=== PATIENT | female | born 1990 | race Caucasian/White ===

== ENCOUNTER 2018-04-23 01:29 | Observation (INO) | payer OTHER ==
[~2018-04-23] VITALS: Ht 165.1 cm; Wt 63.5 kg
[2018-04-23 01:34] VITALS: BP 134/80
--- NOTE | 2018-04-23 01:34 | NUR ---
ED Nurse Note: Patient walk in c/o vomiting for 4x hours. Patient reports undigested food emesis. Patient states her BS is 160. Patient reports 7/10 abdominal pain. Pt is AO x 4times, VSS, on room air no distress. ERMD seen Pt at bedside.
[2018-04-23] MEDS ORDERED: TRESIBA FL100 UNIT/1 SQ (01:38)
[2018-04-23] MEDS ORDERED: ZOLOFT50 MG ORAL (01:38)
[2018-04-23] MEDS ORDERED: HUMALOG100 UNIT/3 SUBQ (01:38)
[2018-04-23] MEDS ORDERED: Metoclopramide 10mg/2ml Inj IVP ONE (01:45)
[2018-04-23] MEDS ORDERED: Sodium Chloride 500ML 500 ML IV ONE (01:45)
[2018-04-23] MEDS ORDERED: DiphenhydrAMINE 50mg/ml Inj IVP ONE (01:45)
--- NOTE | 2018-04-23 01:58 | Emergency Room Report ---
History of Present Illness General Chief Complaint: Vomiting Source: Patient Present Illness HPI Patient presents with intermittent bouts of rapid heart rate occurring intermittently during the week. His sugars haven't gotten above 300. She is an insulin-dependent diabetic. Tonight she's been vomiting and has epigastric discomfort from the vomiting and is complaining about a rapid heart rate. She also complains about watery diarrhea. She's never had cardiac problems before. She's had diabetic ketoacidosis in the past. She is due to begin her period in a few days. She takes 20 units of long-acting insulin once a day and controls her sugars with Humalog. For every 50 units above 150 mg/dL she takes 1 unit. She believes she might have eaten something that caused this reaction. She rates pain 6/10, intermittent, nonradiating and cramping with some burning quality. She had a similar episode when she traveled to [place]. This required hospitalization for 2 days. He was similar in that she had epigastric pain, vomiting and diarrhea. She denies chest pain, dizziness, fevers, sore throat, cough, dysuria, joint pain. She has been under stress trying to arrange for her son's birthday tomorrow. Allergies: Coded Allergies: No Known Allergies (Unverified , 04/23/18) Patient History Past Medical History: see triage record Social History: Reports: drug use - THC; Denies: smoking, alcohol use Social History Narrative with . Professional musician. Son turns 6 years old tomorrow Last Menstrual Period: 03/25/2018 Now: No : 1 Para: 1 Reviewed Nursing Documentation: PMH: Agreed; PSxH: Agreed Nursing Documentation-PM Past Medical History: No History, Except For Hx Diabetes: Yes - type 1 Review of Systems All Other Systems: negative except mentioned in HPI Physical Exam Vital Signs Date Time Temp Pulse Resp B/P (MAP) Pulse Ox O2 Delivery O2 Flow Rate FiO2 04/23/18 01:34 97.3 157 22 124/87 97 Room Air Sp02 EP Interpretation: reviewed, normal General Appearance: alert, GCS 15, mild distress Head: normocephalic Eyes: bilateral eye normal inspection, bilateral eye PERRL ENT: normal pharynx, dry mucus membranes Neck: supple Respiratory: lungs clear, normal breath sounds Cardiovascular #1: regular rate, rhythm Cardiovascular #2: 2+ radial (R) Gastrointestinal: normal inspection, normal bowel sounds, soft, no mass, non- distended, no guarding, no rebound, tenderness - Reported epigastric Genitourinary: no CVA tenderness Musculoskeletal: back normal, gait/station normal, normal range of motion Neurologic: alert, oriented x3, grossly normal Psychiatric: anxious Skin: normal inspection, warm/dry Medical Decision Making Diagnostic Impression: Primary Impression: Hyperglycemia Additional Impressions: Leukocytosis Qualified Codes: D72.828 - Other elevated white blood cell count Abdominal pain Qualified Codes: R10.13 - Epigastric pain Respiratory alkalosis Sinus tachycardia ER Course Patient presents with a vomiting dyspnea tachycardia with history of diabetes. Differential includes diabetic ketoacidosis, gastroenteritis, find depletion, arrhythmia amongst others. Evaluation will be with EKG, chest x-ray and labs including venous blood gas. The patient will be treated with Reglan, Benadryl, fentanyl, Pepcid and IV hydration. EKG with ST rate 154. CXR clear. Labs with elevated glucose and bicarb 15. WBC = 18k Venous blood gas with respiratory alkalosis (pH = 7.56). No evidence of diabetic ketoacidosis at this time however patient needs continued treatment with IV hydration and repeat Accu-Cheks and labs. With fluids, slightly better HR. No more vomiting. Still nauseated. Improved with treatment. Wants to go home as son's 6th birthday. Vomiting again. Zofran and analgesia. Repeat BNP initially looks like lab/draw error. Repeat peripheral draw. Peripheral BNP improved. Bicarbonate normal and potassium normal. This also suggests prior respiratory alkalosis. Still with pain - requests Dilaudid. Due to leukocytosis, continued pain and nausea with brittle diabetes admission for observation is undertaken. Patient states she does not want to stay but agrees to stay for repeat evaluation. Patient admitted to telemetry to Dr. Lucero. Laboratory Tests Test 04/23/18 01:40 04/23/18 01:45 04/23/18 04:15 04/23/18 05:25 White Blood Count 18.0 K/UL (4.8-10.8) H Red Blood Count 5.15 M/UL (4.20-5.40) Hemoglobin 17.0 G/DL (12.0-16.0) H Hematocrit 46.8 % (37.0-47.0) Mean Corpuscular Volume 91 FL (80-99) Mean Corpuscular Hemoglobin 33.0 PG (27.0-31.0) H Mean Corpuscular Hemoglobin Concent 36.3 G/DL (32.0-36.0) H Red Cell Distribution Width 10.8 % (11.6-14.8) L Platelet Count 369 K/UL (150-450) Mean Platelet Volume 8.5 FL (6.5-10.1) Neutrophils (%) (Auto) % (45.0-75.0) Lymphocytes (%) (Auto) % (20.0-45.0) Monocytes (%) (Auto) % (1.0-10.0) Eosinophils (%) (Auto) % (0.0-3.0) Basophils (%) (Auto) % (0.0-2.0) Differential Total Cells Counted 100 Neutrophils % (Manual) 87 % (45-75) H Lymphocytes % (Manual) 10 % (20-45) L Monocytes % (Manual) 1 % (1-10) Eosinophils % (Manual) 2 % (0-3) Basophils % (Manual) 0 % (0-2) Band Neutrophils 0 % (0-8) Platelet Estimate Adequate Platelet Morphology Normal Red Blood Cell Morphology Normal Sodium Level 136 MMOL/L (136-145) 144 MMOL/L (136-145) 136 MMOL/L (136-145) Potassium Level 3.4 MMOL/L (3.5-5.1) L 3.1 MMOL/L (3.5-5.1) L 4.1 MMOL/L (3.5-5.1) Chloride Level 96 MMOL/L (98-107) L 114 MMOL/L (98-107) H 103 MMOL/L (98-107) Carbon Dioxide Level 15 MMOL/L (21-32) L 18 MMOL/L (21-32) L 22 MMOL/L (21-32) Anion Gap 25 mmol/L (5-15) H 12 mmol/L (5-15) 12 mmol/L (5-15) Blood Urea Nitrogen 8 mg/dL (7-18) 6 mg/dL (7-18) L 10 mg/dL (7-18) Creatinine 1.0 MG/DL (0.55-1.30) 0.5 MG/DL (0.55-1.30) L 0.8 MG/DL (0.55-1.30) # Estimate Glomerular Filtration Rate > 60 mL/min (>60) > 60 mL/min (>60) > 60 mL/min (>60) Glucose Level 231 MG/DL (74-106) H 172 MG/DL (74-106) H 230 MG/DL (74-106) H Calcium Level 10.4 MG/DL (8.5-10.1) H 5.6 MG/DL (8.5-10.1) #*L 7.9 MG/DL (8.5-10.1) #L Magnesium Level 1.5 MG/DL (1.8-2.4) L Total Bilirubin 0.5 MG/DL (0.2-1.0) Aspartate Amino Transferase (AST) 34 U/L (15-37) Alanine Aminotransferase (ALT) 34 U/L (12-78) Alkaline Phosphatase 75 U/L (46-116) Total Protein 9.0 G/DL (6.4-8.2) H Albumin 4.7 G/DL (3.4-5.0) Globulin 4.3 g/dL Albumin/Globulin Ratio 1.1 (1.0-2.7) Lipase 117 U/L (73-393) Human Chorionic Gonadotropin, Qual Negative (NEGATIVE) Acetone Level Positive-small (NEGATIVE) Venous Blood pH Pending Venous Blood Partial Pressure CO2 Pending Venous Blood Partial Pressure O2 Pending Venous Blood HCO3 Pending Venous Blood Total Carbon Dioxide Pending Venous Bld O2 Saturation (Measured) Pending Venous Blood Oxygen Saturation Pending Venous Blood Base Excess Pending Methemoglobin Pending Sodium (Blood Gas) Pending EKG Diagnostic Results Rate: tachycardiac ST Segments: no acute changes Rhythm Strip Diag. Results EP Interpretation: yes Rhythm: no PVC's, no ectopy, other - ST Chest X-Ray Diagnostic Results Chest X-Ray Diagnostic Results : Chest X-Ray Ordered: Yes # of Views/Limited/Complete: 1 View Indication: Other EP Interpretation: Yes Interpretation: no consolidation, no effusion, no pneumothorax Impression: No acute disease Electronically Signed by: Electronically signed by Sergio Loza MD Status: improved Disposition: ADMITTED INPATIENT Condition: Serious Sergio Loza MD Apr 23, 2018 01:58
--- NOTE | 2018-04-23 02:00 | NUR ---
ED Nurse Note: Blood sample sent to Lab.
[2018-04-23 02:05] LABS: HEMATOCRIT 46.8 % (37.0-47.0); MEAN CORPUSCULAR VOLUME 91 FL (80-99); PLATELET COUNT 369 K/UL (150-450); RED BLOOD COUNT 5.15 M/UL (4.20-5.40); RED CELL DISTRIBUTION WIDTH 10.8 % (11.6-14.8)
[2018-04-23 02:15] LABS: ANION GAP 25 mmol/L (5-15); BLOOD UREA NITROGEN 8 mg/dL (7-18); CALCIUM 10.4 MG/DL (8.5-10.1); CARBON DIOXIDE 15 MMOL/L (21-32); CHLORIDE 96 MMOL/L (98-107); POTASSIUM 3.4 MMOL/L (3.5-5.1); SODIUM 136 MMOL/L (136-145)
[2018-04-23 02:20] LABS: ALANINE AMINOTRANSFERASE 34 U/L (12-78); ALBUMIN 4.7 G/DL (3.4-5.0); ALBUMIN/GLOBULIN RATIO 1.1 (1.0-2.7); ALKALINE PHOSPHATASE 75 U/L (46-116); ASPARTATE AMINO TRANSFERASE 34 U/L (15-37); BILIRUBIN,TOTAL 0.5 MG/DL (0.2-1.0)
[2018-04-23] MEDS ORDERED: Morphine Sulfate 4mg/ml Inj (IV/IM USE ONLY) IVP ONE (02:30)
--- NOTE | 2018-04-23 02:43 | NUR ---
RESPIRATORY THERAPY Venous results given back to Dr. Loza. Wasn't able to enter results on [employer] ACID/BASE 37.0 C pH 7.538 pCO2 15.9 pO2 92.4 HCO3 13.2 BE(B) -6.7 CO-OXIMETRY tHB 12.1 g/dl sO2 97.0 % FO2HB 96.2 % FCOHb 0.3 % FMetHb 0.5 % FHHb 3.0 %
[2018-04-23] MEDS ORDERED: fentaNYL 100 mcg/2 mL IV ONE ×2 (02:45→04:00)
--- NOTE | 2018-04-23 04:35 | Diagnostic Imaging Report ---
EXAM: XR Chest, 1 View CLINICAL HISTORY: CP TECHNIQUE: Frontal view of the chest. COMPARISON: No relevant prior studies available. FINDINGS: Lungs: Unremarkable. No consolidation. Pleural space: Unremarkable. No pneumothorax. Heart: Unremarkable. No cardiomegaly. Mediastinum: Unremarkable. Bones/joints: Unremarkable. IMPRESSION: Normal chest.
[2018-04-23 05:15] LABS: ANION GAP 12 mmol/L (5-15); BLOOD UREA NITROGEN 6 mg/dL (7-18); CARBON DIOXIDE 18 MMOL/L (21-32); CHLORIDE 114 MMOL/L (98-107); CREATININE 0.5 MG/DL (0.55-1.30); POTASSIUM 3.1 MMOL/L (3.5-5.1); SODIUM 144 MMOL/L (136-145)
[2018-04-23] MEDS ORDERED: Hydromorphone 0.5mg/0.5ml inj IVP ONE (05:15)
--- NOTE | 2018-04-23 05:15 | NUR ---
ED Nurse Note: Repect BMP sent to Lab.
[2018-04-23 05:18] LABS: CALCIUM 5.6 MG/DL (8.5-10.1)
[2018-04-23] MEDS ORDERED: Potassium Chloride 20 MEQ in LR 1000ml 1,000 ML IV SCH (05:30)
[2018-04-23] MEDS ORDERED: LR 1000ml 1,000 ML IVLG SCH ×2 (06:00)
[2018-04-23 06:17] LABS: ANION GAP 12 mmol/L (5-15); BLOOD UREA NITROGEN 10 mg/dL (7-18); CALCIUM 7.9 MG/DL (8.5-10.1); CARBON DIOXIDE 22 MMOL/L (21-32); CHLORIDE 103 MMOL/L (98-107); CREATININE 0.8 MG/DL (0.55-1.30); POTASSIUM 4.1 MMOL/L (3.5-5.1); SODIUM 136 MMOL/L (136-145)
[2018-04-23 07:00] VITALS: BP 128/78
--- NOTE | 2018-04-23 07:00 | NUR ---
ED Nurse Note: Admit Pt to Tele Room 204-1. Pt is AO x 4times, VSS, on room air no distress. Skin and belongings check with RN. Report given to MANUEL Goldstein.
--- NOTE | 2018-04-23 07:39 | General Progress Note ---
Assessment/Plan Assessment/Plan GI CONSULT Dictated Will check stool w/u Begin clear - advance Thank you Gauri Suarez MD Subjective Allergies: Coded Allergies: No Known Allergies (Unverified , 04/23/18) Objective Last 24 Hour Vital Signs Date Time Temp Pulse Resp B/P (MAP) Pulse Ox O2 Delivery O2 Flow Rate FiO2 04/23/18 07:00 98.1 87 20 128/78 100 Room Air 04/23/18 07:00 98.1 87 20 128/78 100 Room Air 04/23/18 01:34 85 20 Room Air 04/23/18 01:34 97.3 157 22 124/87 97 Room Air 04/23/18 01:34 98.4 87 20 134/80 97 Room Air Intake and Output 04/22/18 04/23/18 19:00 07:00 Intake Total 150 ml Balance 150 ml Intake Oral 150 ml # Voids 1 Laboratory Tests 04/23/18 01:40: White Blood Count 18.0H, Red Blood Count 5.15, Hemoglobin 17.0H, Hematocrit 46.8 , Mean Corpuscular Volume 91, Mean Corpuscular Hemoglobin 33.0H, Mean Corpuscular Hemoglobin Concent 36.3H, Red Cell Distribution Width 10.8L, Platelet Count 369, Mean Platelet Volume 8.5, Neutrophils (%) (Auto) , Lymphocytes (%) (Auto) , Monocytes (%) (Auto) , Eosinophils (%) (Auto) , Basophils (%) (Auto) , Neutrophils % (Manual) [Pending], Lymphocytes % (Manual) [Pending], Platelet Estimate [Pending], Platelet Morphology [Pending], Sodium Level 136, Potassium Level 3.4L, Chloride Level 96L, Carbon Dioxide Level 15L, Anion Gap 25H, Blood Urea Nitrogen 8, Creatinine 1.0, Estimat Glomerular Filtration Rate > 60, Glucose Level 231H, Calcium Level 10.4H, Magnesium Level 1.5L, Total Bilirubin 0.5, Aspartate Amino Transf (AST/SGOT) 34, Alanine Aminotransferase (ALT/SGPT) 34, Alkaline Phosphatase 75, Total Protein 9.0H, Albumin 4.7, Globulin 4.3, Albumin/Globulin Ratio 1.1, Lipase 117, Human Chorionic Gonadotropin, Qual Negative, Acetone Level Positive-small 04/23/18 01:45: Venous Blood pH [Pending], Venous Blood Partial Pressure CO2 [Pending], Venous Blood Partial Pressure O2 [Pending], Venous Blood HCO3 [Pending], Venous Blood Total Carbon Dioxide [Pending], Venous Bld O2 Saturation (Measured) [Pending], Venous Blood Oxygen Saturation [Pending], Venous Blood Base Excess [Pending], Methemoglobin [Pending], Sodium (Blood Gas) [Pending] 04/23/18 04:15: Sodium Level 144, Potassium Level 3.1L, Chloride Level 114H, Carbon Dioxide Level 18L, Anion Gap 12, Blood Urea Nitrogen 6L, Creatinine 0.5L, Estimat Glomerular Filtration Rate > 60, Glucose Level 172H, Calcium Level 5.6#*L 04/23/18 05:25: Sodium Level 136, Potassium Level 4.1, Chloride Level 103, Carbon Dioxide Level 22, Anion Gap 12, Blood Urea Nitrogen 10, Creatinine 0.8#, Estimat Glomerular Filtration Rate > 60, Glucose Level 230H, Calcium Level 7.9#L Height (Feet): 5 Height (Inches): 5.00 Weight (Pounds): 140 Salinas Suarez MD Apr 23, 2018 07:39
--- NOTE | 2018-04-23 07:41 | NUR ---
NURSE NOTES: Report received from MANUEL Matthews. Pt is alert and oriented X4. Bed is in lowest position, side rails up X2, and call light is within reach. Will continue to monitor.
[2018-04-23] MEDS ORDERED: Mylanta II UD 30ml ORAL PRN (08:15)
[2018-04-23] MEDS ORDERED: Ketorolac 30mg Inj IV PRN (08:15)
[2018-04-23] MEDS ORDERED: Miralax 17gm pkt ORAL PRN (08:15)
[2018-04-23] MEDS ORDERED: Morphine Sulfate 4mg/ml Inj (IV/IM USE ONLY) IVP PRN ×2 (08:15→10:15)
[2018-04-23] MEDS ORDERED: Nitroglycerin Subl 0.4mg tab SL PRN (08:15)
--- NOTE | 2018-04-23 08:58 | NUR ---
NURSE NOTES: Patient is refusing the ultrasounds. She states "I do not need an ultrasound, I came in for a stomach bug". Explained to patient the importance of having the procedure done. Pt verbalized understanding but is still refusing.
[2018-04-23] MEDS ORDERED: Levemir Flexpen SUBQ SCH (09:00)
[2018-04-23] MEDS ORDERED: Heparin 5000 units/ml inj SUBQ SCH (09:00)
--- NOTE | 2018-04-23 09:08 | NUR ---
NURSE NOTES: Received call from Dr. Knight. Per Give entire levemir dose even if pt is NPO. Orders noted and carried out.
[2018-04-23] MEDS ORDERED: HYDROmorphone 1mg/ml Carpuject IVP PRN ×2 (10:10→10:15)
[2018-04-23] MEDS ORDERED: NovoLOG Insulin Flexpen SUBQ SCH ×3 (11:30→11:50)
--- NOTE | 2018-04-23 11:56 | NUR ---
NURSE NOTES: patient does not want to stay in the hospital. She has signed out AMA. Belongings list signed and in chart. ID band was removed and IV was discontinued. No redness or swelling noted. Monitor removed and given to tech. Singed AMA form in chart. Primary MD notified.
--- NOTE | 2018-04-23 15:04 | Cardiology Report ---
APPROVED REPORT EKG Measurement Heart [id number] Sinus tachycardia Nonspecific T wave abnormality Abnormal ECG
--- NOTE | 2018-04-23 17:44 | History and Physical Report ---
DATE OF ADMISSION: 04/23/2018 TIME SEEN: 10 a.m. CONSULTANTS: 1. Edin Loja M.D. 2. Dennis Knight M.D. 3. Daquan Murrell M.D. CHIEF COMPLAINT: Nausea, vomiting, hyperglycemia. BRIEF HISTORY: A 27-year-old female, who lives at home, presents with nausea and vomiting for two days. Her sugar spiked up to mid 250s. The patient came to [place], diagnosed with the above, and admitted to telemetry for further care. Currently calm in bed, slightly nauseous. No complaint. REVIEW OF SYSTEMS: No chest pain. No shortness of breath. Slight nausea and vomiting, no diarrhea. PAST MEDICAL HISTORY: Diabetes type 1. PAST SURGICAL HISTORY: 1. . 2. Appendectomy. MEDICATIONS: Include NovoLog insulin, hydromorphone, morphine, detemir, temazepam, Zofran. ALLERGIES: Denies. SOCIAL HISTORY: Positive smoke. Occasional alcohol. No intravenous drug use. Positive marijuana use. FAMILY HISTORY: Noncontributory. PHYSICAL EXAMINATION: GENERAL: Calm in bed, oriented x3, no acute distress. VITAL SIGNS: Temperature is 98 degrees, pulse 87, respiratory rate 20, blood pressure 120/78. CARDIOVASCULAR: No murmurs. LUNGS: Distant and clear. ABDOMEN: Bowel sounds positive. Nontender. Nondistended. EXTREMITIES: No cyanosis, clubbing, or edema. NEUROLOGIC: The patient moves all extremities, slightly weak. LABORATORY AND DIAGNOSTIC DATA: White count 18, otherwise CBC is normal. BMP show initial abnormality. The latest one show BMP is normal except glucose 230 and calcium 7.9. Urine tox positive for small acetone. ASSESSMENT: 1. Nausea and vomiting. 2. Hyperglycemia. 3. Leukocytosis. PLAN: 1. Blood sugar control. 2. Pain control. 3. Dietary followup. 4. Antiemetic. 5. Dietary evaluation. 6. CBC and BMP in the morning. 7. Endocrine followup and GI followup. Augustin Lucero D.O. DR: Nel JOB#: [id number] CC:
--- NOTE | 2018-04-23 22:15 | Consultation ---
DATE OF CONSULTATION: 04/23/2018 NOTE: POOR AUDIO GASTROENTEROLOGY CONSULTATION CONSULTING PHYSICIAN: Salinas Suarez M.D. CHIEF COMPLAINT: I was asked to see this patient by Dr. Augustin Lucero for evaluation of symptoms. HISTORY OF PRESENT ILLNESS: The patient is a 27-year-old white woman with a history of type 1 insulin dependent diabetes, who comes into the hospital with some palpitation type symptoms for the past two days. Over the past 24 hours, the patient also has noticed vomiting and diarrhea. The patient feels back to normal today and however she has had no more diarrhea or vomiting overnight. The patient states that her diarrhea actually goes back to few months. She states that the reasons are unclear today. She has had loose stools for the past three to four months several times a day. The patient has never had endoscopy or colonoscopy before. She has no family history of inflammatory bowel disease. PAST MEDICAL HISTORY: Insulin-dependent diabetes. FAMILY HISTORY: Positive for diabetes in her father and brother. SOCIAL HISTORY: The patient is and she has one child. She occasionally smokes and drinks also occasionally. REVIEW OF SYSTEMS: The patient has had history of diabetic ketoacidosis in the past. MEDICATIONS: See chart list for details. PHYSICAL EXAMINATION: GENERAL: A well-developed, well-nourished white woman, seen in her room. HEENT: Normocephalic and atraumatic. Sclerae anicteric. Oropharynx clear. NECK: Supple. CHEST: Clear to auscultation. CARDIOVASCULAR: Revealed regular rate. ABDOMEN: Soft with good bowel sounds. There was no tenderness or organomegaly. EXTREMITIES: Reveal no edema. NEUROLOGIC: Grossly nonfocal. LABORATORY DATA: Noted. ASSESSMENT: This patient presents with symptom complexed with nausea, vomiting, and diarrhea over the past 24 hours, which was significantly improved. In addition, however, she has diarrhea for the three months, which is more protracted and she will have a complete set of stool cultures complaints. Should the results be negative then the patient may be a candidate for colonoscopy to evaluate the lower GI tract for colitis. With vomiting, it appears to be an acute process and . This may or may not have gastroenteritis, although she reportedly also has a mild degree of ketones and therefore some degree of keotacidosis, which was mild. In either case, her vomiting has resolved. Her diet can be advanced as tolerated and it should be managed supportively. RECOMMENDATIONS: 1. Advance diet as tolerated. 2. IV fluids. 3. We will check all stool cultures. Thank you for asking me to participate in care this patient. Salinas Suarez M.D. DR: QASIM JOB#: [id number] CC:
--- NOTE | 2018-04-23 22:30 | Consultation ---
DATE OF CONSULTATION: 04/23/2018 ENDOCRINOLOGY CONSULTATION: CONSULTING PHYSICIAN: Dennis Knight M.D. REFERRING PHYSICIAN: Augustin Lucero D.O. REASON FOR CONSULTATION: Management of insulin-dependent diabetes. HISTORY OF PRESENT ILLNESS: The patient is a 27-year-old female with longstanding history of type 1 diabetes. As an outpatient, she is on multiple daily injections with Tresiba and Humalog. She uses insulin Tresiba long acting 30 units in the morning and Humalog as needed started with each meal and insulin carb ratio of 1 to 10 and a correction of 1 to 15. Per the patient, she was in quite a good health until a couple of days ago when her 7-year-old child came down with a flu-like illness and then she caught it. She started to have nausea and vomiting, and she felt unwell enough to come to the emergency department. On presentation, she had an open gap of 25 with bicarb of 15. She was given fluid and insulin and gap was successfully closed this morning to 12 and bicarb up to 22. Her test is negative. Lipase is normal and she is NPO. Symptomatically, she has improved. Currently, she is on normal saline IV infusion. PAST MEDICAL HISTORY: Type 1 diabetes as above. PAST SURGICAL HISTORY: Appendectomy and . SOCIAL HISTORY: No smoking, alcohol, or drug use. REVIEW OF SYSTEMS: A 12-point review of systems was performed. The pertinent positives and negatives are mentioned in the present illness. FAMILY HISTORY: Noncontributory. MEDICATIONS: Reviewed and reconciled. Insulin regimen mentioned in the history of present illness. LABORATORY DATA: Laboratory values this morning had sodium of 136, potassium 4.1, chloride 102, bicarbonate 22, BUN 10, creatinine 0.8, glucose 230, and calcium 7.9. Urine test is negative. Lipase is normal at 170. WBC of 18,000, hemoglobin 17, hematocrit 46.8, and platelets of 369. PHYSICAL EXAMINATION: VITAL SIGNS: Temperature of 98.1, pulse of 87, respiratory rate of 20, and blood pressure 128/78. GENERAL: The patient is not in apparent distress. NECK: No JVD. No thyromegaly. LUNGS: Clear. HEART: Regular rate and rhythm. ABDOMEN: Positive bowel sounds. EXTREMITIES: No clubbing, cyanosis, or edema. DIAGNOSES: 1. Mild diabetic ketoacidosis, resolved already. 2. Underlying type 1 diabetes, on multiple daily injections with Tresiba and Humalog as an outpatient, control is unknown. 3. Nausea, vomiting, and abdominal pain, most likely due to viral illness. PLAN: 1. Continue with the IV fluids as ordered by Dr. Lucero and Dr. Loja. 2. Levemir at 20 units daily, first dose now as Tresiba is not formulary at [facility] and the patient does not have her own insulin with her. 3. NovoLog sliding scale before meals and at bedtime. NovoLog 5 units before each meal and bedtime. 4. Check hemoglobin A1c. 5. Further adjustment according to blood glucose values. Thank you, Dr. Lucero, for the courtesy of this consultation. Dennis Knight M.D. DR: CHEYENNE JOB#: [id number] CC: PRASHANTH
--- NOTE | 2018-04-24 13:17 | Discharge Summary ---
Discharge Summary Discharge Summary _ DATE OF ADMISSION: 04/23/2018 DATE OF DISCHARGE: 04/23/2018 Patient signed against medical advise REASON FOR ADMISSION: 27-year-old female with past medical history of diabetes mellitus type 1, presented with complaints of intermittent bouts of rapid heart rate. Blood sugar was around 300. Patient was vomited and had epigastric discomfort from vomiting . Patient also reported diarrhea. Patient never had cardiac problems in the past. Patient reported history of diabetic ketoacidosis in the past. Upon evaluation vital signs revealed tachycardia and tachypnea. Pulse oximetry was stable on room air. Laboratory workup revealed leukocytosis WBC 18. Bicarb 15, repeated after IV hydration - 22. Anion gap initially 25 , repeated 12. Urine test was negative. EKG revealed sinus tachycardia. Chest x-ray revealed no acute cardiopulmonary pathology. Patient provided with IV fluids, and heart rate somewhat improved. No further vomiting. Antiemetic provided. Patient admitted to telemetry floor for further management. CONSULTANTS: GI specialist Dr. Suarez Plate Developer Dr. Knight [facility]: Patient admitted to telemetry floor. Patient was provided with generous IV hydration with close monitoring of electrolytes , renal parameters and blood glucose. GI and endocrinology consults were requested. Plate Developer diagnosed patient with mild diabetic ketoacidosis , which resolved. Patient had underlying type 1 diabetes mellitus , and on multiple daily injection with insulin at home . Plate Developer recommended long-acting Levemir , short acting NovoLog before meals and at bedtime; check hemoglobin A1c, and further adjust insulin a based on blood glucose values. GI specialist closely followed. Patient with episodes of nausea, vomiting, and diarrhea over 24 hours. Stool culture were ordered. Per GI specialist, if stool culture negative, patient may be a candidate for colonoscopy to evaluate lower GI tract for colitis. Supportive care provided ; antiemetic provided as needed. Possible gastroenteritis. Vomiting resolved. Diet slowly started and advanced as tolerated. Patient was able to tolerate diet. GI prophylaxis provided. Renal parameters and electrolytes were closely monitored. Electrolytes corrected as needed. Nephrotoxins were avoided. Pain management was addressed . No further vomiting or diarrhea. Patient felt better and wanted to leave , since it was her son birthday. The risks and consequences of signing AGAINST MEDICAL ADVICE were discussed with patient in detail. Patient verbalized understanding, nevertheless signed AMA form and left. FINAL DIAGNOSES: Mild diabetic ketoacidosis -resolved Type 1 diabetes mellitus Nausea ,vomiting and diarrhea possibly due to viral infection Possible gastroenteritis Leukocytosis. I have been assigned to dictate discharge summary for this account. I was not involved in the patient's management. Anneliese Giles NP Apr 24, 2018 13:17
== END 2018-04-23 11:57 | disposition left against medical advice (07) ==
LOC: EDBEDREQSVC 03:46 → EDBEDREQ 03:48 → EMR 04:55 → INTOOBSV 05:05 → 2E 05:05 → OBSVTOIN 05:05 → EDBEDREQ 05:47
DX: E10.10 Type 1 diabetes mellitus with ketoacidosis without coma (principal); A08.4 Viral intestinal infection, unspecified; Z79.4 Long term (current) use of insulin
CPT/HCPCS: 36415; 71045; 80048; 80053; 82009; 82962; 83690; 83735; 84703; 85007; 85025; 93005; 96361; 96365; 96366; 96368; 96375; 96376; 99285; G0378; J1170; J1200; J1815; J2405; J2765; J3010; J3480; S0028; S5561